=== PATIENT | female | born 1930 | race Two or more races ===

== ENCOUNTER 2016-10-03 14:05 | Inpatient (IN) | payer MEDICARE, BC ==
--- NOTE | 2016-10-03 14:39 | ER Document Report ---
ED GI/ - General Mode of Arrival: Medic Information source: Patient - HPI Patient complains to provider of: Other - nausea Associated symptoms: Other - See above <MARILYNN NUNEZ - Last Filed: 10/03/16 18:35> <STEPHANIEROLANDA Reich - Last Filed: 10/03/16 19:16> - General Chief Complaint: Nausea Stated Complaint: NAUSEA Notes: Patient is an 86 year old female, with a past medical history including cholecystectomy and bleeding ulcer, who presents to the emergency department via EMS complaining of nausea onset 5 days ago. Patient reports that her grandchildren visited last weekend and they were sick, since then her and son have both been. Patient states that she first had chills before the nausea started. Patient complains of abdominal pain, diarrhea, and vomiting. Patient describes the diarrhea as watery and fairly constant. Patient sates that the vomiting has since turned into dry heaves. Patient denies fever, recent travel, and recent antibiotic use. (MARILYNN NUNEZ) - Related Data Allergies/Adverse Reactions: codeine [Codeine] Allergy (Verified 10/03/16 14:26) morphine [Morphine] Allergy (Verified 10/03/16 14:26) Past Medical History - General Information source: Patient - Social History Smoking Status: Unknown if Ever Smoked Family History: Reviewed & Not Pertinent - Past Medical History Cardiac Medical History: Reports: Hx Hypercholesterolemia GI Medical History: Reports: Hx Gastroesophageal Reflux Disease, Hx Hiatal Hernia, Hx Ulcer Musculoskeltal Medical History: Reports Hx Arthritis Psychiatric Medical History: Reports: Hx Depression Past Surgical History: Reports: Hx Abdominal Surgery, Hx Cholecystectomy, Hx Tonsillectomy, Hx Tubal Ligation <MARILYNN NUNEZ - Last Filed: 10/03/16 18:35> Review of Systems - Review of Systems Constitutional: See HPI, Chills. denies: Fever EENT: No symptoms reported Cardiovascular: No symptoms reported Respiratory: No symptoms reported Gastrointestinal: See HPI, Abdominal pain, Diarrhea, Nausea, Vomiting Genitourinary: No symptoms reported Female Genitourinary: No symptoms reported Musculoskeletal: No symptoms reported Skin: No symptoms reported Hematologic/Lymphatic: No symptoms reported Neurological/Psychological: No symptoms reported -: Yes All other systems reviewed and negative <MARILYNN NUNEZ - Last Filed: 10/03/16 18:35> Course - Laboratory Result Diagrams: 10/03/16 14:55 10/03/16 14:55 - Consults Dr. Marie Time consulted: 18:34 - Was instructed by Dr. Marie to call the night hospitalist as the time has changed <MARILYNN NUNEZ - Last Filed: 10/03/16 18:35> - Laboratory Result Diagrams: 10/03/16 14:55 10/03/16 14:55 <ROLANDA KELLER - Last Filed: 10/03/16 19:16> - Re-evaluation Re-evalutation: 10/03/16 18:00 At recheck the patient has finally had a stool that has been delivered to lab for evaluation. She states she does not feel really any better. We will try some Bentyl as she still is having some abdominal discomfort that comes in waves. 10/03/16 19:16 Patient is poorly tolerating her current illness. We will contact the hospitalist for admission. C. difficile is negative. Culture is pending. ( ROLANDA KELLER) - Vital Signs Vital signs: Temp Pulse Resp BP Pulse Ox 97.5 F 89 22 H 130/55 H 94 10/03/16 14:21 10/03/16 14:21 10/03/16 17:19 10/03/16 16:02 10/03/16 16:02 - Laboratory Laboratory results interpreted by me: 10/03/16 10/03/16 14:55 14:55 Monocytes % 13.7 H Chloride 108 H Carbon Dioxide 21 L AST 78 H Scribe Documentation - Scribe Written by Adam:: adam Coles, 10/03/16, 6475 acting as scribe for :: Stephanie <MARILYNN NUNEZ - Last Filed: 10/03/16 18:35>
[2016-10-03] MEDS ORDERED: NORMAL SALINE 1000 ML 1,000 ML IV ONE (14:48)
[2016-10-03 15:36] LABS: ABSOLUTE LYMPHOCYTES (AUTO) 1.5 10^3/uL (0.5-4.7); ABSOLUTE MONOCYTES (AUTO) 0.7 10^3/uL (0.1-1.4); ABSOLUTE NEUT (AUTO) 2.6 10^3/uL (1.7-8.2); BASOPHILS % (AUTO) 0.2 % (0-2); EOSINOPHILS % (AUTO) 0.3 % (0-6); HEMATOCRIT 39.1 % (36.0-47.0); HEMOGLOBIN 13.3 g/dL (12.0-15.5); HGB HCT DIFFERENCE 0.8; LYMPHOCYTES % (AUTO) 31.9 % (13-45); MEAN CORPUSCULAR HEMOGLOBIN 31.5 pg (27.0-33.4); MEAN CORPUSCULAR VOLUME 93 fl (80-97); MONOCYTES % (AUTO) 13.7 % (3-13); RED BLOOD COUNT 4.22 10^6/uL (3.72-5.28); RED CELL DISTRIBUTION WIDTH 13.8 % (11.5-14.0); SEGMENTED NEUTROPHILS % (AUTO) 53.9 % (42-78); WHITE BLOOD COUNT 4.8 10^3/uL (4.0-10.5)
[2016-10-03 15:54] LABS: ALANINE AMINOTRANSFERASE 43 U/L (9-52); ALKALINE PHOSPHATASE 43 U/L (38-126); ANION GAP 15 (5-19); ASPARTATE AMINO TRANSFERASE 78 U/L (14-36); BILIRUBIN,DIRECT 0.3 mg/dL (0.0-0.4); BILIRUBIN,TOTAL 0.7 mg/dL (0.2-1.3); BLOOD UREA NITROGEN 12 mg/dL (7-20); CALCIUM 9.4 mg/dL (8.4-10.2); CARBON DIOXIDE 21 mmol/L (22-30); CHLORIDE 108 mmol/L (98-107); CREATININE RESULT 0.63 mg/dL (0.52-1.25); GLUCOSE 83 mg/dL (75-110); MAGNESIUM 1.6 mg/dL (1.6-2.3); POTASSIUM 3.8 mmol/L (3.6-5.0); SODIUM 143.6 mmol/L (137-145); TOTAL PROTEIN 6.8 g/dL (6.3-8.2)
[2016-10-03] MEDS ORDERED: DICYCLOMINE HCL INJ 20 MG/2 ML AMPULE IM ONE (17:45)
[2016-10-03] MEDS ORDERED: ACETAMINOPHEN 325 MG TABLET PO PRN (21:16)
--- NOTE | 2016-10-03 21:35 | PDOC H&P ---
History of Present Illness Admission Date/PCP: 10/03/16 20:02 CECI JACOB MD Patient complains of: N/V/D History of Present Illness: NICOLASA RAWLS is a 86 year old female with underlying obstructive sleep apnea, refusing CPAP, arthritis, history of bleeding duodenal ulcer in 2013, hyperlipidemia, partial hearing loss, and mild depression, without suicidal or homicidal ideation who presents to the emergency room for evaluation of above complaints. Patient has been discussed with emergency room physician who evaluated the patient. She describes the onset of nausea with vomiting 5 days ago. This has transitioned to simply dry heaves. She's had occasional chills. Primary complaint is multiple episodes of nonbloody watery diarrhea. Associated cramping abdominal pain, which increases with eating virtually anything. 6 doses of Imodium over the last 2-3 days have done little to slow her diarrhea. Grandchildren recently visited with similar complaints. and son have primarily the nausea and dry heaves. No recent antibiotic use. Denies chest pain. Hospitalized on our service July 10 through the 2012, with discharge diagnoses of acute blood loss secondary to duodenal ulcer. History and physical and discharge summary have been reviewed. Laboratory results are listed in [facility] and are reviewed. X-ray summary results are listed below, with full report(s) reviewed. . Social history/personal habits: . 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 No tobacco or illicit drug use. Occasional glass of wine or a glass of beer, but not very or very much. Allergies/adverse reactions are listed in [facility] and are reviewed. Both codeine and morphine result in nausea and vomiting. Home medications Home medications initially autopopulated into [employer] may not accurately reflect patient's true medications, dosages, and/or frequencies. medical office technician has reconciled medications. REVIEW OF SYSTEMS: Constitutional: See history and present illness. Eyes: Wears glasses. ENT: No swallowing problems or complaints. Partial hearing loss. Pulmonary: No current complaints. Cardiovascular: No current complaints, including chest pain. Gastrointestinal: See history and present illness. Skin: No current complaints, including rashes. Hematologic: No unusual easy bruising or bleeding. Neurologic: Chronic numbness and tingling of her right lower extremity, after undergoing back operation a number of years ago. Musculoskeletal: Joint pain from arthritis. Psychiatric: Mild depression; denies suicidal or homicidal ideation. Endocrine: No current complaints, including polyuria. Genitourinary: No current complaints, including dysuria. PHYSICAL EXAMINATION: 4 feet 10 inches tall. 61.2 kg. BMI 28.2 kg/m. Blood pressure 141/72. Pulse 63 and regular. 97% saturation on room air. Respirations are 19 and unlabored. Temperature 97.3. is present at her side; patient approves. Slightly overweight otherwise well-nourished well-developed female who appears a fair number of years younger than her stated age. Pleasant awake alert and cooperative. Appears to feel a bit under the weather, so to speak. Mildly anxious, without agitation. Skin is warm and dry. No grossly obvious evidence of rash in areas of skin examined. No subcutaneous nodules palpated. ENT: Mildly hard of hearing to normal conversation. Tongue midline on protrusion pink and slightly tacky. Eyes: No scleral icterus. Pupils equal and reactive to light at 4 mm. Ranson conjunctivae. Neck is supple and nontender to gentle active range of motion and palpation. Midline trachea. No palpable thyroid nodule mass enlargement or tenderness. Lymphatic: No palpable cervical or clavicular nodes. Neck and lymphatic exams limited by patient body habitus. Psychiatric: Reasonable insight into acute and chronic medical issues. Oriented to time location and why here. Lungs: Auscultation reveals clear and equal breath sounds bilaterally. No use of accessory respiratory muscles. Cardiovascular: Heart regular rate and rhythm, without gallop murmur or rub. No carotid or abdominal aortic bruits. No ankle or pedal edema. Faintly palpable dorsalis pedis pulses. Abdomen: soft, somewhat distended basically nontender with positive bowel sounds. Unable to adequately evaluate abdomen for masses or organomegaly due to distention. Extremities: Feet are warm and dry. No calf tenderness to compression. No grossly obvious visual evidence of calf swelling. Gentle manipulation of lower extremities fails to reveal any obvious evidence of injury or instability to knees hips or ankles. Neurologic: Moves upper extremities grossly normally. Patellar reflexes absent. Absent Babinski. Light touch is intact at left foot, somewhat decreased at right foot, a chronic finding according to patient. Dorsiflexion and plantarflexion of feet 5 / 5 and symmetric. Past Medical History Cardiac Medical History: Reports: Hyperlipidema Denies: Congestive Heart Failure, DVT, Myocardial Infarction, Hypertension, Pulmonary Embolism Pulmonary Medical History: Reports: Sleep Apnea - Refuses to wear CPAP due to claustrophobia Denies: Asthma, Chronic Obstructive Pulmonary Disease (COPD) EENT Medical History: Reports: Eyes - Wears glasses, Ears - Partial hearing loss Neurological Medical History: Reports: Other - Chronic numbness and tingling, right lower extremity, after back surgery Denies: Hemorrhagic CVA, Ischemic CVA, Seizures Endocrine Medical History: Denies: Diabetes Mellitus Type 1, Diabetes Mellitus Type 2, Hyperthyroidism, Hypothyroidism Renal/ Medical History: Reports: None GI Medical History: Reports: Gastroesophageal Reflux Disease, Hiatal Hernia, Peptic Ulcer Disease - History of duodenal ulcer, bleeding, 2013. Denies: Cirrhosis, Hepatitis Musculoskeltal Medical History: Reports: Arthritis Skin Medical History: Reports: None Psychiatric Medical History: Reports: Depression Denies: Alcohol Dependency, General Anxiety Disorder, Substance Abuse, Tobacco Dependency Hematology: Reports: None Infectious Medical History: Denies: Hepatitis B, Hepatitis C Past Surgical History Past Surgical History: Reports: Cholecystectomy, Tonsillectomy, Tubal Ligation Denies: Hysterectomy Social History Information Source: Patient, Emergency Med Personnel, [facility] Records Lives with: Spouse/Significant other Smoking Status: Unknown if Ever Smoked Frequency of Alcohol Use: Occasional Hx Recreational Drug Use: No Hx Prescription Drug Abuse: No - Advance Directive Resuscitation Status: Full Code Surrogate healthcare decision maker:: Family History Family History: Reviewed & Not Pertinent Parental Family History Reviewed: Yes - Mother of diverticulitis. Uncertain cause of father's Children Family History Reviewed: Yes - Son with coronary artery disease. Sibling(s) Family History Reviewed.: NA Medication/Allergy Home Medications: RX: Acetaminophen [Tylenol Extra Strength] 1,000 mg PO Q12 10/03/16 RX: Ascorbic Acid [Vitamin C 500 mg Tablet] 500 mg PO DAILY 10/03/16 RX: Aspirin [Ecotrin 81 mg EC Tablet] 81 mg PO DAILY 10/03/16 RX: B2/Vit A,C & E/Lut/Zeaxanth/Mn [Icaps Tablet] 1 tab PO DAILY 10/03/16 RX: Calcium Carbonate/Vitamin D3 [Calcium 600-Vit D3 200 Tablet] 1 tab PO DAILY 10/03/16 RX: Calcium Polycarbophil [Fibercon 625 mg Tablet] 1 tab PO DAILY 10/03/16 RX: Cholecalciferol (Vitamin D3) [Vitamin D3 1000 Unit Tablet] 1,000 unit PO DAILY 10/03/16 RX: Cyanocobalamin (Vitamin B-12) [Vitamin B-12 1000 mcg Tablet] 1,000 mcg PO DAILY 10/03/16 RX: Ezetimibe/Simvastatin [Vytorin 10-40 mg Tablet] 1 each PO DAILY 10/03/16 RX: Latanoprost [Xalatan 0.005% Oph Soln 2.5 ml] 1 drop OU QHS 10/03/16 RX: Pantoprazole Sodium [Protonix] 40 mg PO DAILY 10/03/16 RX: Ropinirole HCl [Requip] 0.5 mg PO QHS 10/03/16 RX: Sertraline HCl [Zoloft 50 mg Tablet] 50 mg PO DAILY 10/03/16 RX: Zolpidem Tartrate [Ambien 5 mg Tablet] 5 mg PO HSP PRN 10/03/16 RX: Loperamide HCl [Imodium 2 mg Capsule] 2 mg PO Q4HP PRN capsule 10/06/16 Allergies/Adverse Reactions: codeine [Codeine] Allergy (Verified 10/03/16 14:26) morphine [Morphine] Allergy (Verified 10/03/16 14:26) Physical Exam Vital Signs: Temp Pulse Resp BP Pulse Ox 97.5 F 68 20 147/51 H 95 10/03/16 14:21 10/03/16 19:41 10/03/16 19:00 10/03/16 18:07 10/03/16 19:00 Results Impressions: Abdomen X-Ray 10/03/16 18:52 IMPRESSION: NO RADIOGRAPHIC EVIDENCE FOR ACUTE ABDOMINAL DISEASE. Assessment & Plan - Diagnosis (1) Abdominal pain Qualifiers: Abdominal location: generalized Qualified Code(s): R10.84 - Generalized abdominal pain Is this a current diagnosis for this admission?: YesPlan: Basically nontender at present. When necessary pain medication. (2) Acidosis Is this a current diagnosis for this admission?: YesPlan: Mild, probably secondary to an element of dehydration from the vomiting and diarrhea. IV fluids. Follow-up chemistry. (3) Elevated LFTs Is this a current diagnosis for this admission?: YesPlan: Minimal transaminase elevation. Probably secondary to her acute illness. Follow-up chemistry. (4) Nausea vomiting and diarrhea Is this a current diagnosis for this admission?: YesPlan: IV fluids. Ice chips. Advance diet slowly. I have strongly encouraged patient not to get out of bed without notifying staff , to avoid a fall with injury. Knee high SCDs for DVT prophylaxis, [along with subcutaneous Lovenox . Impression and plans were discussed with patient, , both of whom concur. Time spent in evaluation and management of patient: 68 minutes. (5) Depression Qualifiers: Depression Type: unspecified Qualified Code(s): F32.9 - Major depressive disorder, single episode, unspecified Is this a current diagnosis for this admission?: YesPlan: Clinically not overly remarkable. Resume home medications as appropriate once these have been determined and reviewed. (6) HLD (hyperlipidemia) Qualifiers: Hyperlipidemia type: unspecified Qualified Code(s): E78.5 - Hyperlipidemia, unspecified Is this a current diagnosis for this admission?: YesPlan: Resume home medications as appropriate once these have been determined and reviewed.
[2016-10-03 22:10] LABS: ANION GAP 17 (5-19); BLOOD UREA NITROGEN 10 mg/dL (7-20); CALCIUM 9.7 mg/dL (8.4-10.2); CARBON DIOXIDE 20 mmol/L (22-30); CHLORIDE 108 mmol/L (98-107); CREATININE RESULT 0.64 mg/dL (0.52-1.25); GLUCOSE 79 mg/dL (75-110); MAGNESIUM 1.5 mg/dL (1.6-2.3); SODIUM 144.5 mmol/L (137-145)
[2016-10-03] MEDS ORDERED: RINGERS SOLUTION,LACTATED 1,000 ML IV PRN (22:34)
[2016-10-03] MEDS ORDERED: MAGNESIUM SULFATE/D5W 1 GM/100 ML RTUPB IV ONE (23:00)
[2016-10-03] MEDS: POTASSI CL 20 MEQ/D5NS 1L 1,000 ML IV PRN (23:07)
[2016-10-04] MEDS: ZOLPIDEM TARTRATE 5 MG TABLET PO PRN ×2 (01:18→22:01)
[2016-10-04 06:09] LABS: HEMATOCRIT 36.9 % (36.0-47.0); HEMOGLOBIN 12.7 g/dL (12.0-15.5); HGB HCT DIFFERENCE 1.2; MEAN CORPUSCULAR HEMOGLOBIN 31.8 pg (27.0-33.4); MEAN CORPUSCULAR HGB CONC 34.4 g/dL (32.0-36.0); MEAN CORPUSCULAR VOLUME 92 fl (80-97); RED CELL DISTRIBUTION WIDTH 13.8 % (11.5-14.0); WHITE BLOOD COUNT 5.4 10^3/uL (4.0-10.5)
[2016-10-04 06:30] LABS: ALANINE AMINOTRANSFERASE 44 U/L (9-52); ALBUMIN 3.7 g/dL (3.5-5.0); ALKALINE PHOSPHATASE 41 U/L (38-126); ANION GAP 14 (5-19); ASPARTATE AMINO TRANSFERASE 93 U/L (14-36); BILIRUBIN,DIRECT 0.5 mg/dL (0.0-0.4); BILIRUBIN,TOTAL 0.9 mg/dL (0.2-1.3); BLOOD UREA NITROGEN 9 mg/dL (7-20); CALCIUM 9.1 mg/dL (8.4-10.2); CARBON DIOXIDE 19 mmol/L (22-30); CHLORIDE 112 mmol/L (98-107); CREATININE RESULT 0.55 mg/dL (0.52-1.25); GLUCOSE 91 mg/dL (75-110); POTASSIUM 4.1 mmol/L (3.6-5.0); SODIUM 144.9 mmol/L (137-145); TOTAL PROTEIN 6.4 g/dL (6.3-8.2)
[2016-10-04 07:16] LABS: BASOPHILS % (MANUAL) 0 % (0-2); BURR CELLS SLIGHT; EOSINOPHILS % (MANUAL) 1 % (0-6); LYMPHOCYTES % (MANUAL) 45 % (13-45); TEAR DROP CELLS SLIGHT; TOTAL CELLS COUNTED 100; TOXIC GRANULATION SLIGHT; TOXIC VACUOLATION PRESENT
[2016-10-04] MEDS ORDERED: EZETIMIBE PO SCH (10:00)
[2016-10-04] MEDS ORDERED: SIMVASTATIN PO SCH (10:00)
[2016-10-04] MEDS: SERTRALINE HCL 50 MG TABLET PO SCH (10:13)
[2016-10-04] MEDS: CHOLECALCIFEROL (D3) 1,000 UNIT TABLET PO SCH (10:13)
[2016-10-04] MEDS: ASPIRIN 81 MG TABLET, ENT COATED PO SCH (10:14)
[2016-10-04] MEDS: CYANOCOBALAMIN (VITAMIN B-12) 1,000 MCG TABLET PO SCH (10:14)
[2016-10-04] MEDS: CALCIUM CARBONATE 250 MG/VITAMIN D3 125 UNIT TABLET PO SCH (10:14)
[2016-10-04] MEDS: ENOXAPARIN SODIUM INJ 40 MG/0.4 ML DISP.SYRIN SUBCUT SCH (10:14)
--- NOTE | 2016-10-04 14:39 | PDOC PROGRESS REPORT ---
Subjective Progress Note for:: 10/04/16 Subjective:: This a follow-up visit for acute viral gastroenteritis. The patient complains of diarrhea. She said that her bottom is raw. She wants something to stop the diarrhea. C. difficile was negative. She doesn't understand why she still has diarrhea 5 days with him the other family members only had it for 3 days. Physical Exam Vital Signs: Temp Pulse Resp BP Pulse Ox 97.4 F 63 16 146/48 H 98 10/04/16 08:00 10/04/16 08:00 10/04/16 08:00 10/04/16 08:00 10/04/16 08:00 Intake & Output 10/03/16 10/04/16 10/05/16 06:59 06:59 06:59 Intake Total 1300 Balance 1300 Weight 61.24 kg PHYSICAL EXAM: GENERAL: This is a well-developed well-nourished overweight white female resting in no acute distress. HEART: Regular rate and rhythm. No murmurs rubs or gallops. LUNGS: Clear to auscultation bilaterally with equal rise and fall of the chest. ABDOMEN: Soft, nontender, nondistended with hyperactive bowel sounds EXTREMITIES: No clubbing cyanosis or edema. 2+ peripheral pulses. NEURO: Awake, alert, oriented x3. Cranial nerves II through XII grossly intact. PSYCH: Normal affect. Results Laboratory Results: 10/04/16 05:31 10/04/16 05:31 10/03/16 10/04/16 10/04/16 21:39 05:31 05:31 WBC 5.4 RBC 4.00 Hgb 12.7 Hct 36.9 MCV 92 MCH 31.8 MCHC 34.4 RDW 13.8 Plt Count 133 L Seg Neutrophils % Not Reportable Lymphocytes % Not Reportable Monocytes % Not Reportable Eosinophils % Not Reportable Basophils % Not Reportable Absolute Neutrophils Not Reportable Absolute Lymphocytes Not Reportable Absolute Monocytes Not Reportable Absolute Eosinophils Not Reportable Absolute Basophils Not Reportable Sodium 144.5 144.9 Potassium 4.0 4.1 Chloride 108 H 112 H Carbon Dioxide 20 L 19 L Anion Gap 17 14 BUN 10 9 Creatinine 0.64 0.55 Est GFR ( Amer) > 60 > 60 Est GFR (Non-Af Amer) > 60 > 60 Glucose 79 91 Calcium 9.7 9.1 Magnesium 1.5 L Total Bilirubin 0.9 AST 93 H ALT 44 Alkaline Phosphatase 41 Total Protein 6.4 Albumin 3.7 Impressions: Abdomen X-Ray 10/03/16 18:52 IMPRESSION: NO RADIOGRAPHIC EVIDENCE FOR ACUTE ABDOMINAL DISEASE. Assessment & Plan - Diagnosis (1) Viral gastroenteritis Plan: Continue supportive care with IV fluids and Imodium. C. difficile negative. (2) Hypomagnesemia Plan: Replaced (3) Acidosis Plan: Secondary to diarrhea. Recheck Chem-7 in the morning. (4) Depression Qualifiers: Depression Type: unspecified Qualified Code(s): F32.9 - Major depressive disorder, single episode, unspecified Plan: Continue home medications. (5) HUMZA (obstructive sleep apnea) Plan: Patient has declined CPAP. (6) HLD (hyperlipidemia) Qualifiers: Hyperlipidemia type: unspecified Qualified Code(s): E78.5 - Hyperlipidemia, unspecified Plan: Continue home medications. - Time Time Spent with patient: 15-24 minutes - Inpatient Certification Medical Necessity: Significant Comorbidiites Make Outpatient Treatment Too Risky
[2016-10-04] MEDS: POTASSI CL 20 MEQ/D5NS 1L 1,000 ML IV PRN ×2 (14:42→22:01)
[2016-10-04] MEDS: LOPERAMIDE HCL 2 MG CAPSULE PO PRN ×2 (15:47→20:21)
[2016-10-04] MEDS ORDERED: HYDRALAZINE HCL INJ/PF 20 MG/1 ML SDV IV PRN (16:42)
[2016-10-04] MEDS: EZETIMIBE 10 MG TABLET PO SCH (22:01)
[2016-10-04] MEDS: SIMVASTATIN 40 MG TABLET PO SCH (22:01)
[2016-10-04] MEDS: ROPINIROLE HCL 0.25 MG TABLET PO SCH (22:01)
[2016-10-04] MEDS: LATANOPROST 0.005% OPH SOLN 2.5 ML OU SCH (22:02)
[2016-10-05] MEDS: LOPERAMIDE HCL 2 MG CAPSULE PO PRN ×2 (02:31→10:26)
[2016-10-05 06:14] LABS: ANION GAP 13 (5-19); BLOOD UREA NITROGEN 3 mg/dL (7-20); CARBON DIOXIDE 21 mmol/L (22-30); CHLORIDE 113 mmol/L (98-107); CREATININE RESULT 0.54 mg/dL (0.52-1.25); GLUCOSE 108 mg/dL (75-110); MAGNESIUM 1.5 mg/dL (1.6-2.3); SODIUM 146.6 mmol/L (137-145)
[2016-10-05 06:44] LABS: ABSOLUTE MONOCYTES (AUTO) 0.6 10^3/uL (0.1-1.4); ABSOLUTE NEUT (AUTO) 2.6 10^3/uL (1.7-8.2); BASOPHILS % (AUTO) 0.2 % (0-2); EOSINOPHILS % (AUTO) 0.4 % (0-6); HEMATOCRIT 37.8 % (36.0-47.0); HEMOGLOBIN 12.7 g/dL (12.0-15.5); HGB HCT DIFFERENCE 0.3; LYMPHOCYTES % (AUTO) 38.3 % (13-45); MEAN CORPUSCULAR HEMOGLOBIN 31.1 pg (27.0-33.4); MEAN CORPUSCULAR HGB CONC 33.6 g/dL (32.0-36.0); MEAN CORPUSCULAR VOLUME 93 fl (80-97); MONOCYTES % (AUTO) 11.7 % (3-13); RED BLOOD COUNT 4.07 10^6/uL (3.72-5.28); RED CELL DISTRIBUTION WIDTH 13.5 % (11.5-14.0); SEGMENTED NEUTROPHILS % (AUTO) 49.4 % (42-78); WHITE BLOOD COUNT 5.3 10^3/uL (4.0-10.5)
[2016-10-05] MEDS: CALCIUM CARBONATE 250 MG/VITAMIN D3 125 UNIT TABLET PO SCH (10:25)
[2016-10-05] MEDS: ASPIRIN 81 MG TABLET, ENT COATED PO SCH (10:26)
[2016-10-05] MEDS: CYANOCOBALAMIN (VITAMIN B-12) 1,000 MCG TABLET PO SCH (10:26)
[2016-10-05] MEDS: CHOLECALCIFEROL (D3) 1,000 UNIT TABLET PO SCH (10:26)
[2016-10-05] MEDS: SERTRALINE HCL 50 MG TABLET PO SCH (10:26)
[2016-10-05] MEDS: ENOXAPARIN SODIUM INJ 40 MG/0.4 ML DISP.SYRIN SUBCUT SCH (10:28)
[2016-10-05] MEDS: POTASSI CL 20 MEQ/D5NS 1L 1,000 ML IV PRN (11:45)
[2016-10-05] MEDS ORDERED: MAGNESIUM SULFATE/D5W 1 GM/100 ML RTUPB IV ONE (13:00)
--- NOTE | 2016-10-05 14:48 | PDOC PROGRESS REPORT ---
Subjective Progress Note for:: 10/05/16 Subjective:: This a follow-up visit for acute viral gastroenteritis. The patient complains of diarrhea. She's had 5 liquid stools so far today. She has intermittent dizziness. She has had no vomiting. Physical Exam Vital Signs: Temp Pulse Resp BP Pulse Ox 97.4 F 70 17 152/61 H 98 10/05/16 08:10 10/05/16 08:10 10/05/16 08:10 10/05/16 08:10 10/05/16 08:10 Intake & Output 10/04/16 10/05/16 10/06/16 06:59 06:59 06:59 Intake Total 1300 1723 540 Balance 1300 1723 540 Weight 61.24 kg PHYSICAL EXAM: GENERAL: This is a well-developed well-nourished overweight white female resting in no acute distress. HEART: Regular rate and rhythm. No murmurs rubs or gallops. LUNGS: Clear to auscultation bilaterally with equal rise and fall of the chest. ABDOMEN: Soft, nontender, nondistended with hyperactive bowel sounds EXTREMITIES: No clubbing cyanosis or edema. 2+ peripheral pulses. NEURO: Awake, alert, oriented x3. Cranial nerves II through XII grossly intact. Slow, unsteady gait PSYCH: Normal affect. Results Laboratory Results: 10/05/16 05:39 10/05/16 05:39 10/05/16 10/05/16 05:39 05:39 WBC 5.3 RBC 4.07 Hgb 12.7 Hct 37.8 MCV 93 MCH 31.1 MCHC 33.6 RDW 13.5 Plt Count 140 L Seg Neutrophils % 49.4 Lymphocytes % 38.3 Monocytes % 11.7 Eosinophils % 0.4 Basophils % 0.2 Absolute Neutrophils 2.6 Absolute Lymphocytes 2.0 Absolute Monocytes 0.6 Absolute Eosinophils 0.0 Absolute Basophils 0.0 Sodium 146.6 H Potassium 4.0 Chloride 113 H Carbon Dioxide 21 L Anion Gap 13 BUN 3 L Creatinine 0.54 Est GFR ( Amer) > 60 Est GFR (Non-Af Amer) > 60 Glucose 108 Calcium 9.0 Magnesium 1.5 L Impressions: Abdomen X-Ray 10/03/16 18:52 IMPRESSION: NO RADIOGRAPHIC EVIDENCE FOR ACUTE ABDOMINAL DISEASE. Assessment & Plan - Diagnosis (1) Viral gastroenteritis Plan: Continue supportive care with IV fluids and Imodium. C. difficile negative. (2) Hypomagnesemia Plan: Replaced again today (3) Acidosis Plan: Secondary to diarrhea. Improved today (4) Depression Qualifiers: Depression Type: unspecified Qualified Code(s): F32.9 - Major depressive disorder, single episode, unspecified Plan: Continue home medications. (5) UHMZA (obstructive sleep apnea) Plan: Patient has declined CPAP. (6) HLD (hyperlipidemia) Qualifiers: Hyperlipidemia type: unspecified Qualified Code(s): E78.5 - Hyperlipidemia, unspecified Plan: Continue home medications. (7) Dehydration Plan: Patient hypernatremic today. This is extremely mild. But likely due to continued loss of fluid from diarrhea continue IV fluids. We will recheck labs tomorrow - Time Time Spent with patient: 15-24 minutes - Because of the age of the patient and continued episodes of diarrhea associated with intermittent lightheadedness and unsteady gait the patient has been changed to inpatient status. She also exhibits some mild hypernatremia from fluid loss and requires continue IV fluid resuscitation. - Inpatient Certification Medical Necessity: Significant Comorbidiites Make Outpatient Treatment Too Risky
[2016-10-05] MEDS ORDERED: BISMUTH SUBSALICYLATE 262 MG TAB.CHEW PO PRN (17:00)
[2016-10-05] MEDS ORDERED: BISMUTH SUBSALICYLATE 262 MG TAB.CHEW PO ONE (17:00)
[2016-10-05] MEDS: SIMVASTATIN 40 MG TABLET PO SCH (22:46)
[2016-10-05] MEDS: EZETIMIBE 10 MG TABLET PO SCH (22:46)
[2016-10-05] MEDS: ROPINIROLE HCL 0.25 MG TABLET PO SCH (22:46)
[2016-10-05] MEDS: LATANOPROST 0.005% OPH SOLN 2.5 ML OU SCH (22:47)
[2016-10-05] MEDS: ZOLPIDEM TARTRATE 5 MG TABLET PO PRN (22:55)
[2016-10-06 06:51] LABS: ABSOLUTE LYMPHOCYTES (AUTO) 1.6 10^3/uL (0.5-4.7); ABSOLUTE MONOCYTES (AUTO) 0.6 10^3/uL (0.1-1.4); BASOPHILS % (AUTO) 0.3 % (0-2); EOSINOPHILS % (AUTO) 0.2 % (0-6); HEMATOCRIT 37.8 % (36.0-47.0); HEMOGLOBIN 12.8 g/dL (12.0-15.5); HGB HCT DIFFERENCE 0.6; LYMPHOCYTES % (AUTO) 31.5 % (13-45); MEAN CORPUSCULAR HEMOGLOBIN 31.2 pg (27.0-33.4); MEAN CORPUSCULAR HGB CONC 33.8 g/dL (32.0-36.0); MEAN CORPUSCULAR VOLUME 92 fl (80-97); MONOCYTES % (AUTO) 10.9 % (3-13); RED CELL DISTRIBUTION WIDTH 13.7 % (11.5-14.0); SEGMENTED NEUTROPHILS % (AUTO) 57.1 % (42-78); WHITE BLOOD COUNT 5.2 10^3/uL (4.0-10.5)
[2016-10-06 07:12] LABS: ANION GAP 13 (5-19); BLOOD UREA NITROGEN 3 mg/dL (7-20); CALCIUM 9.1 mg/dL (8.4-10.2); CARBON DIOXIDE 24 mmol/L (22-30); CHLORIDE 108 mmol/L (98-107); CREATININE RESULT 0.52 mg/dL (0.52-1.25); GLUCOSE 94 mg/dL (75-110); MAGNESIUM 1.7 mg/dL (1.6-2.3); POTASSIUM 3.8 mmol/L (3.6-5.0); SODIUM 144.7 mmol/L (137-145)
[2016-10-06] MEDS: ENOXAPARIN SODIUM INJ 40 MG/0.4 ML DISP.SYRIN SUBCUT SCH (08:16)
[2016-10-06] MEDS: CALCIUM CARBONATE 250 MG/VITAMIN D3 125 UNIT TABLET PO SCH (10:12)
[2016-10-06] MEDS: CHOLECALCIFEROL (D3) 1,000 UNIT TABLET PO SCH (10:12)
[2016-10-06] MEDS: CYANOCOBALAMIN (VITAMIN B-12) 1,000 MCG TABLET PO SCH (10:13)
[2016-10-06] MEDS: SERTRALINE HCL 50 MG TABLET PO SCH (10:13)
[2016-10-06] MEDS: ASPIRIN 81 MG TABLET, ENT COATED PO SCH (10:14)
--- NOTE | 2016-10-06 11:30 | Physician Advisory Note ---
Physician Advisor ProgressNote .: Pursuant to the plan for [facility], I have reviewed the medical record for this patient. Physician Advisor Statement: Excellent documentation of reasons for pt to be made Inpt. Possible documentation opportunities if attending agrees: 1. "Acute metabolic acidosis due to ongoing GI fluid losses" Discussion: 86yo female w/ chronic co-morbidities including GERD, HLD, HUMZA/refusing CPAP, bleeding ulcer - presented 10/03 to ED w/ongoing N/V/D/abd pain. (+) HR 89, RR22, BP 130.55, bicarb 20, AST 93, C.diff neg. mucosae tacky, abd somewhat distended. Attending ordered IVF, ice chips po, f/u labs, Status: Pt continuing to have acute metabolic acidosis, developing acute hypernatremia, & developing dizziness/unsteadiness, related to continued severe diarrhea w/ associated intravascular volume depletion. Continuing to need IVF, labs f/u. Tx in inpatient hospital setting medically reasonable & necessary to protect pt' s health, safety, & medical condition. Appropriate for Inpt status. Thanks for your help with documentation accuracy/specificity improvement! Daisha Valdez MD [facility] Physician Advisor, Fellow of Hospital Medicine
--- NOTE | 2016-10-06 14:46 | PDOC DISCHARGE SUMMARY ---
General - Admit/Disc Date/PCP Admission Date/Primary Care Provider: 10/05/16 14:42 CECI JACOB MD - Discharge Diagnosis (1) Viral gastroenteritis Summary: Resolving nicely. Patient has had no stools in the last 12 hours. She may continue her recovery at home. Follow with PCP as needed. (2) Hypomagnesemia Summary: Replaced and resolved (3) Acidosis Summary: Resolved (4) Depression Summary: Continue home medications (5) HUMZA (obstructive sleep apnea) Summary: Patient had declined CPAP in the past. She can follow with her PCP. (6) HLD (hyperlipidemia) Summary: Continue statin (7) Dehydration Summary: Resolved. - Additional Information Resuscitation Status: Full Code Discharge Diet: Other (Comments) - bland diet for now. Discharge Activity: Activity As Tolerated Home Medications: Acetaminophen [Tylenol Extra Strength] 1,000 mg PO Q12 10/03/16 Ascorbic Acid [Vitamin C 500 mg Tablet] 500 mg PO DAILY 10/03/16 Aspirin [Ecotrin 81 mg EC Tablet] 81 mg PO DAILY 10/03/16 B2/Vit A,C & E/Lut/Zeaxanth/Mn [Icaps Tablet] 1 tab PO DAILY 10/03/16 Calcium Carbonate/Vitamin D3 [Calcium 600-Vit D3 200 Tablet] 1 tab PO DAILY Calcium Polycarbophil [Fibercon 625 mg Tablet] 1 tab PO DAILY 10/03/16 Cholecalciferol (Vitamin D3) [Vitamin D3 1000 Unit Tablet] 1,000 unit PO DAILY 10/03/16 Cyanocobalamin (Vitamin B-12) [Vitamin B-12 1000 mcg Tablet] 1,000 mcg PO DAILY 10/03/16 Ezetimibe/Simvastatin [Vytorin 10-40 mg Tablet] 1 each PO DAILY 10/03/16 Latanoprost [Xalatan 0.005% Oph Soln 2.5 ml] 1 drop OU QHS 10/03/16 Pantoprazole Sodium [Protonix] 40 mg PO DAILY 10/03/16 Ropinirole HCl [Requip] 0.5 mg PO QHS 10/03/16 Sertraline HCl [Zoloft 50 mg Tablet] 50 mg PO DAILY 10/03/16 Zolpidem Tartrate [Ambien 5 mg Tablet] 5 mg PO HSP PRN 10/03/16 Loperamide HCl [Imodium 2 mg Capsule] 2 mg PO Q4HP PRN capsule 10/06/16 History of Present Illness History of Present Illness: History of present illness as per Dr. Emmanuel: Patient complains of: N/V/D History of Present Illness: NICOLASA RAWLS is a 86 year old female with underlying obstructive sleep apnea, refusing CPAP, arthritis, history of bleeding duodenal ulcer in 2012, hyperlipidemia, partial hearing loss, and mild depression, without suicidal or homicidal ideation who presents to the emergency room for evaluation of above complaints. Patient has been discussed with emergency room physician who evaluated the patient. She describes the onset of nausea with vomiting 5 days ago. This is transitioned and simply dry heaves. She's had occasional chills. Primary complaint is multiple episodes of nonbloody watery diarrhea. Associated cramping abdominal pain, which increases with eating virtually anything. 6 doses of Imodium over the last 2-3 days have done little to slow her diarrhea. Grandchildren recently visited with similar complaints. and son have primarily the nausea and dry heaves. No recent antibiotic use. Denies chest pain. Hospitalized on our service July 10 of the 2012 with discharge diagnoses of acute blood loss secondary to duodenal ulcer. History and physical and discharge summary have been reviewed. Hospital Course Hospital Course: On the floor the patient continued to have multiple stools. She was treated with Imodium and Kaopectate. She was very anxious at the idea that the diarrhea was resolving as quickly as it happened other family members. She was treated with IV fluids for dehydration. Initially made nothing by mouth. Gradually the patient was transitioned to clears and then advanced as tolerated. She handled the diet well. She was converted from observation to inpatient. Her stools continued. Eventually they subsided. She is now fit to go home for continued recovery. Physical Exam Vital Signs: Temp Pulse Resp BP Pulse Ox 98.0 F 74 20 145/58 H 97 10/06/16 11:17 10/06/16 14:00 10/06/16 11:17 10/06/16 11:17 10/06/16 11:17 Intake & Output 10/05/16 10/06/16 10/07/16 06:59 06:59 06:59 Intake Total 2740 Balance 2740 PHYSICAL EXAM: GENERAL: This is a well-developed well-nourished overweight white female resting in her recliner no acute distress. HEART: Regular rate and rhythm. No murmurs rubs or gallops. LUNGS: Clear to auscultation bilaterally with equal rise and fall of the chest. ABDOMEN: Soft, nontender, nondistended with hyperactive bowel sounds EXTREMITIES: No clubbing cyanosis or edema. 2+ peripheral pulses. NEURO: Awake, alert, oriented x3. Cranial nerves II through XII grossly intact. Slow, unsteady gait PSYCH: Normal affect. Results Laboratory Results: 10/06/16 06:33 10/06/16 06:33 10/06/16 10/06/16 06:33 06:33 WBC 5.2 RBC 4.10 Hgb 12.8 Hct 37.8 MCV 92 MCH 31.2 MCHC 33.8 RDW 13.7 Plt Count 171 Seg Neutrophils % 57.1 Lymphocytes % 31.5 Monocytes % 10.9 Eosinophils % 0.2 Basophils % 0.3 Absolute Neutrophils 3.0 Absolute Lymphocytes 1.6 Absolute Monocytes 0.6 Absolute Eosinophils 0.0 Absolute Basophils 0.0 Sodium 144.7 Potassium 3.8 Chloride 108 H Carbon Dioxide 24 Anion Gap 13 BUN 3 L Creatinine 0.52 Est GFR ( Amer) > 60 Est GFR (Non-Af Amer) > 60 Glucose 94 Calcium 9.1 Magnesium 1.7 Impressions: Abdomen X-Ray 10/03/16 18:52 IMPRESSION: NO RADIOGRAPHIC EVIDENCE FOR ACUTE ABDOMINAL DISEASE. Qualifiers PATEINT BEING DISCHARGED WITH ANY OF THE FOLLOWING DIAGNOSIS?: No Plan Time Spent: Less than 30 Minutes
[2016-10-06 15:15] VITALS: BP 146/48
== END 2016-10-06 16:35 | disposition home or self-care (01) | DRG 392 ==
LOC: ER 14:05 → UNDOADMOB 20:02 → EH 20:02 → 5 10-04 00:07 → OBSVTOIN 10-05 14:42
PROVIDERS: ADMIT Family Medicine; ATTEND Family Medicine
DX: A08.4 Viral intestinal infection, unspecified (principal); E87.2 Acidosis; E83.42 Hypomagnesemia; E78.5 Hyperlipidemia, unspecified; E86.0 Dehydration; K21.9 Gastro-esophageal reflux disease without esophagitis; F32.9 Major depressive disorder, single episode, unspecified; R19.7 Diarrhea, unspecified; R11.0 Nausea; G47.33 Obstructive sleep apnea (adult) (pediatric); H91.8X9 Other specified hearing loss, unspecified ear
CPT/HCPCS: 36415; 74020; 80048; 80053; 83735; 85025; 87045; 87205; 87493; 96361; 96365; 96372; 99285; G0378; J0500; J1650; J3475; J3480; J3490; J7030; J7120